=== PATIENT | female | born 1930 | race Caucasian/White ===

== ENCOUNTER 2017-01-24 14:43 | Day surgery (SDC) | payer OTHER, MEDICARE ==
[~2017-01-24] VITALS: Ht 147.3 cm; Wt 36.3 kg
[~2017-01-24 14:43] MED LIST: APRESOLINE50 MG PO; ASPIR-LOW81 MG PO; CLARITIN10 MG PO; COLACE100 MG PO; COZAAR100 MG PO; COZAAR25 MG PO; DETROL1 MG PO; FIBER CHOICE1.5 GM PO; IMDUR120 MG PO; IMDUR60 MG PO; LABETALOL HCL200 MG PO; LABETALOL HCL300 MG PO; LASIX40 MG PO; LASIX80 MG PO; MIRALAX17 GM PO; NASONEX17 GM BOTH NARES; NORMODYNE,TRAN300 MG PO; OXYCODONE-ACET1 EACH PO; PRAVACHOL80 MG PO; PRAVASTATIN SOD80 MG PO; PREMARIN0.3 MG PO; PREVACID15 MG PO; PRILOSEC20 MG PO; PROVENTIL HFA6.7 GM IH; RENAL CAPS SOFTG1 MG PO; RENVELA800 MG PO; VENTOLIN HFA18 GM IH; VICODIN,LORT1 TABLET PO; VITAMIN D1000 INTUN PO
[2017-01-24 15:40] LABS: HEMATOCRIT 35.3 % (36.0-46.0); MCH 33.7 PG (29.0-34.0); MCV 105.4 FL (83-99); MEAN PLAT.VOLUME 9.3 uM^3 (9.5-12.4); PLATELET COUNT 292 K/uL (156-360); RBC DIS.WIDTH-CV 15.9 % (11.8-14.6); RBC DIS.WIDTH-SD 61.2 % (39-53); RED BLOOD COUNT 3.35 M/uL (3.80-5.20); WHITE BLOOD COUNT 8.6 K/uL (4.1-10.2)
[2017-01-24 15:48] VITALS: BP 140/70
[2017-01-24 15:49] LABS: ANION GAP 19 MEQ/L (2-14); CHLORIDE 96 MEQ/L (99-109); SAMPLE HEMOLYSIS CHECK 0; SAMPLE ICTERIC CHECK 0; SAMPLE LIPEMIA CHECK 0; SODIUM 139 MEQ/L (136-147)
[2017-01-24 16:08] LABS: GFR ESTIMATE (CALCULATED) 6 mL/min/; GLUCOSE 107 mg/dL (70-99)
[2017-01-24 16:09] LABS: UREA NITROGEN (BUN) 133 mg/dL (9-23)
[2017-01-24 16:37] LABS: METH RESISTANT S AUREUS PCR NEGATIVE (NEGATIVE)
[2017-01-24 16:38] LABS: PROBE CHECK PASS; SPECIMEN PROCESSING CONTROL PASS
[2017-01-24 22:39] VITALS: BP 167/71
[2017-01-25 03:39] VITALS: BP 155/68
[2017-01-25 07:21] LABS: ANION GAP 21 MEQ/L (2-14); CHLORIDE 97 MEQ/L (99-109); GFR ESTIMATE (CALCULATED) 6 mL/min/; GLUCOSE 78 mg/dL (70-99); POTASSIUM 4.9 MEQ/L (3.7-5.4); SAMPLE HEMOLYSIS CHECK 0; SAMPLE ICTERIC CHECK 0; SAMPLE LIPEMIA CHECK 0; SODIUM 140 MEQ/L (136-147)
[2017-01-25 07:22] VITALS: BP 165/70
[2017-01-25 07:23] LABS: UREA NITROGEN (BUN) 130 mg/dL (9-23)
[2017-01-25 09:33] LABS: AHBS INDEX 4.49; HBSG INDEX 0.24; HEPATITIS B SURFACE ANTIBODY Nonreactive
== END 2017-01-25 15:55 | disposition home or self-care (01) ==
LOC: SDC 14:43 → 2SOUTH 21:05 → 2EAST 21:05
PROVIDERS: Internal Medicine; Physician Assistant; Surgery
DX: T82.868A Thrombosis due to vascular prosthetic devices, implants and grafts, initial encounter (principal); I13.2 Hypertensive heart and chronic kidney disease with heart failure and with stage 5 chronic kidney disease, or end stage renal disease; N18.6 End stage renal disease; I50.9 Heart failure, unspecified; Z99.2 Dependence on renal dialysis; E87.5 Hyperkalemia; J45.909 Unspecified asthma, uncomplicated; I25.2 Old myocardial infarction; Z79.82 Long term (current) use of aspirin; K21.9 Gastro-esophageal reflux disease without esophagitis
CPT/HCPCS: 71020; 80048; 84132 91; 85027; 86706; 87340; 87641; 94640; 94760; 99202; C1725; C1757; C1769; C1874; C1894; C2628; G0378; J1644; J3010; J7040

== ENCOUNTER 2017-02-21 13:28 | Day surgery (SDC) | payer OTHER, MEDICARE ==
[~2017-02-21] VITALS: Ht 147.3 cm; Wt 36.2 kg
[2017-02-21 14:28] VITALS: BP 130/65
[2017-02-21 14:35] LABS: HEMATOCRIT 39.3 % (36.0-46.0); MCH 34.3 PG (29.0-34.0); MCHC 32.3 G/DL (30.0-36.0); MCV 106.2 FL (83-99); MEAN PLAT.VOLUME 9.8 uM^3 (9.5-12.4); PLATELET COUNT 275 K/uL (156-360); RBC DIS.WIDTH-CV 16.7 % (11.8-14.6); WHITE BLOOD COUNT 7.1 K/uL (4.1-10.2)
[2017-02-21 14:48] LABS: ANION GAP 19 MEQ/L (2-14); CHLORIDE 96 MEQ/L (99-109); POTASSIUM 5.6 MEQ/L (3.7-5.4); SAMPLE HEMOLYSIS CHECK 0; SAMPLE ICTERIC CHECK 0; SAMPLE LIPEMIA CHECK 0; SODIUM 140 MEQ/L (136-147)
[2017-02-21 15:02] LABS: GFR ESTIMATE (CALCULATED) 5 mL/min/; GLUCOSE 96 mg/dL (70-99)
[2017-02-21 15:04] LABS: UREA NITROGEN (BUN) 115 mg/dL (9-23)
[2017-02-21 15:17] LABS: METH RESISTANT S AUREUS PCR NEGATIVE (NEGATIVE)
[2017-02-21 15:50] LABS: PROBE CHECK PASS; SPECIMEN PROCESSING CONTROL PASS
[2017-02-21 18:07] VITALS: BP 145/66
[2017-02-21 19:05] VITALS: BP 158/60
[2017-02-21 20:09] VITALS: BP 149/68
[2017-02-21 20:47] VITALS: BP 162/70
== END 2017-02-21 21:04 | disposition home or self-care (01) ==
LOC: SDC 13:28
PROVIDERS: Physician Assistant
DX: T82.868A Thrombosis due to vascular prosthetic devices, implants and grafts, initial encounter (principal); I12.0 Hypertensive chronic kidney disease with stage 5 chronic kidney disease or end stage renal disease; N18.6 End stage renal disease; J45.909 Unspecified asthma, uncomplicated; K21.9 Gastro-esophageal reflux disease without esophagitis; E78.00 Pure hypercholesterolemia, unspecified; D53.9 Nutritional anemia, unspecified; Z99.2 Dependence on renal dialysis; Z79.82 Long term (current) use of aspirin; Z79.899 Other long term (current) drug therapy; Z82.3 Family history of stroke; Z82.49 Family history of ischemic heart disease and other diseases of the circulatory system
CPT/HCPCS: 80048; 85027; 87641; C1725; C1757; C1769; C1874; C1894; C2628; J0690; J1644; J2405; J3010

== ENCOUNTER 2017-07-01 05:48 | Day surgery (SDC) | payer OTHER, MEDICARE ==
[~2017-07-01] VITALS: Ht 147.3 cm; Wt 39.6 kg
[2017-07-01 06:32] VITALS: BP 146/64
[2017-07-01 06:34] LABS: HEMATOCRIT 29.4 % (36.0-46.0); MCH 34.8 PG (29.0-34.0); MCV 105.4 FL (83-99); MEAN PLAT.VOLUME 9.9 uM^3 (9.5-12.4); PLATELET COUNT 251 K/uL (156-360); RED BLOOD COUNT 2.79 M/uL (3.80-5.20); WHITE BLOOD COUNT 7.1 K/uL (4.1-10.2)
[2017-07-01 06:50] LABS: ANION GAP 16 MEQ/L (2-14); CHLORIDE 91 MEQ/L (99-109); POTASSIUM 4.5 MEQ/L (3.7-5.4); SAMPLE HEMOLYSIS CHECK 0; SAMPLE ICTERIC CHECK 0; SAMPLE LIPEMIA CHECK 0; SODIUM 138 MEQ/L (136-147)
[2017-07-01 06:56] LABS: GFR ESTIMATE (CALCULATED) 7 mL/min/; GLUCOSE 85 mg/dL (70-99); UREA NITROGEN (BUN) 82 mg/dL (9-23)
[2017-07-01 07:59] VITALS: BP 164/69
[2017-07-01 10:51] VITALS: BP 126/59
[2017-07-01 15:55] VITALS: BP 136/62
[2017-07-01 15:56] VITALS: BP 136/62
== END 2017-07-01 16:20 | disposition home or self-care (01) ==
LOC: SDC 05:48 → 2EAST 05:49 → SDC 14:43 → 2EAST 16:20
PROVIDERS: Surgery
DX: T82.868A Thrombosis due to vascular prosthetic devices, implants and grafts, initial encounter (principal); T82.858A Stenosis of other vascular prosthetic devices, implants and grafts, initial encounter; I12.0 Hypertensive chronic kidney disease with stage 5 chronic kidney disease or end stage renal disease; N18.6 End stage renal disease; Z99.2 Dependence on renal dialysis; E78.5 Hyperlipidemia, unspecified; K21.9 Gastro-esophageal reflux disease without esophagitis; Z88.5 Allergy status to narcotic agent
CPT/HCPCS: 80048; 85027; 93005; C1725; C1757; C1769; C1894; C2628; G0378; J1644; J2250; J2405; J3010